=== PATIENT | female | born 1995 | race Caucasian/White ===

== ENCOUNTER 2017-04-26 20:59 | Emergency (ER) | payer SELFPAY ==
[2017-04-26 23:12] VITALS: BP 101/58
== END 2017-04-26 23:12 | disposition home or self-care (01) ==
LOC: ED 20:59
DX: R51 Headache (principal)
CPT/HCPCS: J0780; J1885

== ENCOUNTER 2018-06-27 06:29 | Emergency (ER) | payer MEDICAID ==
[~2018-06-27] VITALS: Ht 157.5 cm; Wt 54.4 kg
[2018-06-27 06:38] VITALS: Ht 157.5 cm; Wt 54.4 kg
[2018-06-27 07:38] VITALS: BP 107/68
== END 2018-06-27 07:38 | disposition home or self-care (01) ==
LOC: ED 06:29
DX: L23.9 Allergic contact dermatitis, unspecified cause (principal)
CPT/HCPCS: J0171; J1200; J2930; J7510; Q0163

== ENCOUNTER 2018-10-24 16:32 | Emergency (ER) | payer SELFPAY ==
[~2018-10-24] VITALS: Ht 157.5 cm; Wt 54.0 kg
[2018-10-24 16:57] VITALS: Ht 157.5 cm; Wt 54.0 kg
[2018-10-24 17:43] LABS: microscopic required? NO
[2018-10-24 17:49] LABS: UA SPECIFIC GRAVITY 1.015 (1.005-1.035); urine erythrocyte NEGATIVE (NEGATIVE)
[2018-10-24 17:53] LABS: BASOPHIL % 0.5 % (0-2); PLATELET COUNT 225 x10^3mcL (130-400); RED CELL DISTRIBUTION WIDTH 12.5 % (11.5-14.5)
[2018-10-24 17:56] LABS: CALCIUM 8.7 mg/dL (8.5-10.1); CHLORIDE SERUM 105 mmol/L (98-107); CREATININE SERUM 0.8 mg/dL (0.6-1.0); GFR1 > 60 mL/min; GLUCOSE SERUM 87 mg/dL (74-106); POTASSIUM SERUM 3.7 mmol/L (3.5-5.1); SODIUM SERUM 141 mmol/L (136-145)
[2018-10-24 18:01] LABS: ALBUMIN 3.7 g/dL (3.4-5.0); ALKALINE PHOSPHATASE 73 U/L (46-116); ALT/SGPT 18 U/L (14-59); AST/SGOT 15 U/L (15-37); BILIRUBIN TOTAL 0.2 mg/dL (0.20-1.00); LIPASE 158 IU/L (73-393); TOTAL PROTEIN, SERUM 7.7 g/dL (6.4-8.2)
[2018-10-24 20:31] VITALS: BP 119/60
== END 2018-10-24 20:31 | disposition home or self-care (01) ==
LOC: ED 16:32
PROVIDERS: Emergency Medicine
DX: R10.84 Generalized abdominal pain (principal); R19.7 Diarrhea, unspecified; R11.10 Vomiting, unspecified
CPT/HCPCS: J1885; J2405; J7030